=== PATIENT | female | born 1960 | race Caucasian/White ===

== ENCOUNTER 2018-09-05 16:37 | Emergency (ER) | payer BC, OTHER ==
[2018-09-05] MEDS: ONDANSETRON (ODT) 4 MG TAB ODT (17:38)
[2018-09-05] MEDS: HYDROCODONE/APAP (5/325) TAB PO (17:38)
== END 2018-09-05 18:45 | disposition home or self-care (01) ==
LOC: FTE 16:37
DX: M25.551 Pain in right hip (principal); M79.651 Pain in right thigh
CPT/HCPCS: 29505; 73510; 73550; 99283-25

== ENCOUNTER 2018-09-07 13:37 | Emergency (ER) | payer BC | END 2018-09-07 16:10 | disposition home or self-care (01) | LOC: FTE 13:37 | DX: S39.92XA Unspecified injury of lower back, initial encounter (principal); W01.0XXA Fall on same level from slipping, tripping and stumbling without subsequent striking against object, initial encounter; Y92.89 Other specified places as the place of occurrence of the external cause | CPT/HCPCS: 72100; 99283-25 ==